=== PATIENT | male | born 1985 | race Two or more races ===

== ENCOUNTER 2017-05-12 09:06 | Emergency (ER) | payer MEDICAID ==
[~2017-05-12] VITALS: Ht 167.6 cm; Wt 79.8 kg
[~2017-05-12 09:06] MED LIST: CITA10TA59 PO; KEP500T PO; LEVAAER4 IN; OLAN10TA29 PO
[2017-05-12 10:15] VITALS: BP 136/87
== END 2017-05-12 10:42 | disposition home or self-care (01) ==
LOC: ER 09:06
DX: R51 Headache (principal); R11.2 Nausea with vomiting, unspecified; F12.10 Cannabis abuse, uncomplicated; J45.909 Unspecified asthma, uncomplicated; F17.210 Nicotine dependence, cigarettes, uncomplicated; W19.XXXA Unspecified fall, initial encounter; Y93.89 Activity, other specified; Y92.89 Other specified places as the place of occurrence of the external cause; Y99.8 Other external cause status
CPT/HCPCS: 70450

== ENCOUNTER 2017-11-21 09:41 | Emergency (ER) | payer MEDICARE, MEDICAID ==
[~2017-11-21] VITALS: Ht 172.7 cm; Wt 72.6 kg
[2017-11-21 09:49] VITALS: BP 109/51
[2017-11-21] MEDS ORDERED: KETOROLAC TROMETH 60MG/2ML VIAL IM ONE (10:45)
== END 2017-11-21 11:17 | disposition home or self-care (01) ==
LOC: ER 09:41
DX: M54.42 Lumbago with sciatica, left side (principal); F17.210 Nicotine dependence, cigarettes, uncomplicated; F12.10 Cannabis abuse, uncomplicated; J45.909 Unspecified asthma, uncomplicated; X50.9XXA Other and unspecified overexertion or strenuous movements or postures, initial encounter; Y93.89 Activity, other specified; Y92.89 Other specified places as the place of occurrence of the external cause; Y99.8 Other external cause status
CPT/HCPCS: 72100; 96372; 99284; J1885

== ENCOUNTER 2018-10-05 13:07 | Emergency (ER) | payer MEDICARE, MEDICAID ==
[~2018-10-05] VITALS: Ht 170.2 cm; Wt 74.8 kg
[2018-10-05 15:14] VITALS: BP 145/83
[2018-10-05] MEDS ORDERED: HYDROcodone-ACET 10/325MG TAB PO ONE (15:30)
[2018-10-05] MEDS ORDERED: BACLOFEN 10 MG TAB PO ONE (15:30)
== END 2018-10-05 16:04 | disposition home or self-care (01) ==
LOC: ER 13:09
DX: S60.012A Contusion of left thumb without damage to nail, initial encounter (principal); S20.212A Contusion of left front wall of thorax, initial encounter; R07.81 Pleurodynia; F17.210 Nicotine dependence, cigarettes, uncomplicated; F12.90 Cannabis use, unspecified, uncomplicated; Z79.899 Other long term (current) drug therapy; V86.56XA Driver of dirt bike or motor/cross bike injured in nontraffic accident, initial encounter; Y93.55 Activity, bike riding; Y99.8 Other external cause status; Y92.89 Other specified places as the place of occurrence of the external cause
CPT/HCPCS: 29125; 71101; 73130

== ENCOUNTER 2018-10-12 07:50 | Emergency (ER) | payer MEDICARE, MEDICAID ==
[~2018-10-12] VITALS: Ht 170.2 cm; Wt 72.6 kg
[2018-10-12 08:07] VITALS: BP 137/77
[2018-10-12] MEDS ORDERED: KETOROLAC TROMETH 60MG/2ML VIAL IM ONE (08:15)
== END 2018-10-12 08:39 | disposition home or self-care (01) ==
LOC: ER 07:50
DX: S69.92XD Unspecified injury of left wrist, hand and finger(s), subsequent encounter (principal); J45.909 Unspecified asthma, uncomplicated; F20.9 Schizophrenia, unspecified; F17.210 Nicotine dependence, cigarettes, uncomplicated; F10.20 Alcohol dependence, uncomplicated; Z79.899 Other long term (current) drug therapy; V86.56XD Driver of dirt bike or motor/cross bike injured in nontraffic accident, subsequent encounter; Y90.9 Presence of alcohol in blood, level not specified
CPT/HCPCS: 96372; 99283; J1885

== ENCOUNTER 2018-10-28 08:44 | Emergency (ER) | payer MEDICARE, MEDICAID ==
[~2018-10-28] VITALS: Ht 167.6 cm; Wt 74.8 kg
[2018-10-28 09:00] VITALS: BP 139/94
[2018-10-28] MEDS ORDERED: IBUPROFEN 800 MG TAB PO ONE (09:45)
== END 2018-10-28 09:49 | disposition home or self-care (01) ==
LOC: ER 08:44
DX: S63.592A Other specified sprain of left wrist, initial encounter (principal); J45.909 Unspecified asthma, uncomplicated; F17.210 Nicotine dependence, cigarettes, uncomplicated; F12.90 Cannabis use, unspecified, uncomplicated; Z79.899 Other long term (current) drug therapy; W01.198A Fall on same level from slipping, tripping and stumbling with subsequent striking against other object, initial encounter; Y93.01 Activity, walking, marching and hiking; Y99.8 Other external cause status; Y92.098 Other place in other non-institutional residence as the place of occurrence of the external cause
CPT/HCPCS: 29125; 73110; 73130